=== PATIENT | male | born 1995 | race Caucasian/White ===

== ENCOUNTER 2023-07-22 09:41 | Outpatient (CLI) | payer BC, SELFPAY ==
[2023-07-22 10:20] LABS: Alanine Aminotransferase 27 U/L (6-50); Albumin Level 4.4 g/dL (3.5-5.1); Alkaline Phosphatase 71 U/L (38-126); Anion Gap 5 mmol/L (8-16); Aspartate Amino Transferase 15 U/L (17-59); Bilirubin,Total 0.9 mg/dL (0.2-1.3); Blood Urea Nitrogen 20 mg/dL (9-20); Calcium 9.3 mg/dL (8.4-10.2); Carbon Dioxide 31 mmol/L (22-30); Chloride 102 mmol/L (98-107); Cholesterol 170 mg/dL (0-200); Estimated Glomerular Filt Rate > 60; Glucose 102 mg/dL (65-110); HDL Direct 62 mg/dL; Potassium 4.1 mmol/L (3.4-5.0); Sodium 138 mmol/L (137-145); Triglycerides 93 mg/dL (<150)
[2023-07-22 10:32] LABS: LDL Cholesterol Direct 88 mg/dL
[2023-07-22 11:21] LABS: Thyroid Stimulating Hormone Reflex 0.481 uIU/mL (0.465-4.68)
== END 2023-07-22 09:42 | disposition home or self-care (01) ==
LOC: ANHLAB 09:44
PROVIDERS: PCP Family Medicine Adolescent Medicine; Visit Provider Nurse Practitioner Family
DX: Z13.220 Encounter for screening for lipoid disorders (principal); Z13.29 Encounter for screening for other suspected endocrine disorder
CPT/HCPCS: 36415; 80053; 80061; 84443

== ENCOUNTER 2023-12-07 13:21 | Emergency (ER) | payer BC, SELFPAY ==
[2023-12-07 13:26] VITALS: BP 116/73; PULSE 93; RESP 20; TEMP 36.6; O2SAT 99
--- NOTE | 2023-12-07 13:39 | ED.GENADULT ---
HPI - General Adult General Chief complaint: Nausea/Vomiting/Diarrhea Stated complaint: n/v Time Seen by Provider: 12/07/23 13:31 History of Present Illness HPI narrative: 28-year-old male presents emergency department for evaluation for nausea vomiting and abdominal pain it has been ongoing for the last 24 hours. Patient states this has been happening more frequently. Patient does admit to daily THC use but is adamant that this is not caused by his daily THC use. Patient has not yet had follow-up with GI. Patient also describes intermittent difficulty with swallowing. Related Data Allergies Allergy/AdvReac Type Severity Reaction Status Date / Time No Known Allergies Allergy Verified 07/22/23 08:19 Review of Systems Review of Systems: All systems reviewed & are unremarkable except as noted in HPI and below PMFSH Past Medical History Medical History Asthma Asthma attack Laceration of ear Surgical History Surgical History History of ear surgery Family History Family History Father Heart problem Sibling Asthma Social History Social History (Updated 07/22/23 @ 08:36 by Sandrine Guo APRN) Social History: coffee or caffeinated soda daily Smoking status: Never smoker Second hand tobacco smoke exposure: No Alcohol intake: current Drinks per week: 1 Alcohol use details: Pt states he drinks bourbon and/or tequila. Substance use: current Substance use type: marijuana Do You Feel Safe in your Home?: Yes Lack of Transportation: No Lack of Food: Sometimes True Current Housing: I Have Housing Concerned About Future Housing: No Difficulty Paying Gas/Electric Bills: No Difficulty Paying for Meds: Decline to Answer Currently Unemployed: No Education: Bachelor's Degree Difficulty w/ Childcare or Family Care: No Living arrangements: with friend(s) Occupation/Education: occupation Additional occupation/education comments: [employer] Ex[employer] Narrative: APPEARANCE: Uncomfortable appearing HEAD: normocephalic, atraumatic. EYES: PERRLA/EOMI, conjunctivae clear. NOSE: Normal no drainage EARS:TMS clear with good light reflex. THROAT: Pharynx clear, no exudate. NECK: Supple. No adenopathy, no masses. RESPIRATORY: Airway patent, respirations nonlabored. Clear to auscultation bilaterally, no rales, rhonchi, wheezing. CARDIOVASCULAR: Regular rate and rhythm without murmurs rubs or gallops. ABDOMINAL: Soft, nontender, nondistended, normal bowel sounds MUSCULOSKELETAL: Moves all extremities. Strength/ROM intact, No edema, No calf tenderness. NEURO: Alert. Cranial nerves II through XII intact. Grossly intact SKIN: Warm, dry. Normal Color Course Course Emergency Course: On re-evaluation patient reports he feels improved patient looks improved. Patient was encouraged to have close follow-up with primary care physician and with GI. Patient was also strongly encouraged to refrain from THC Vital Signs Vital signs: Vital Signs Temperature 97.9 F 12/07/23 13:26 Pulse Rate 93 12/07/23 13:26 Respiratory Rate 20 12/07/23 13:26 Blood Pressure 116/73 12/07/23 13:26 Pulse Oximetry 99 12/07/23 13:26 Oxygen Delivery Room Air 12/07/23 13:26 Temperature 97.9 F 12/07/23 13:26 Pulse Rate 100 12/07/23 16:06 Respiratory Rate 18 12/07/23 16:06 Blood Pressure 117/55 L 12/07/23 16:06 Pulse Oximetry 99 12/07/23 16:06 Oxygen Delivery Room Air 12/07/23 13:26 Medical Decision Making [facility] Narrative Medical decision making narrative: 28-year-old male present to the emergency department for evaluation for intermittent nausea and vomiting. Patient is afebrile but does have leukocytosis of 14.9 a stable hemoglobin of 14.8. Patient no significant electrolyte abnormalities on his CMP patien
[2023-12-07 13:47] LABS: Basophils Percent Auto 0.2 % (0.2-1.2); Eosinophils Percent Auto 0.1 % (0-4.4); Hemoglobin 14.8 g/dL (14.0-18.0); Immature Granulocyte Absolute 0.03 K/mm3 (0.00-0.031); Immature Granulocyte Percent A 0.2 % (0-0.5); Lymphocytes Absolute Auto 1.44 K/mm3 (0.9-3.2); Lymphocytes Percent Auto 9.7 % (18.3-44.2); Mean Corpuscular HGB Conc 34.4 g/dl (32-36); Mean Platelet Volume 9.5 fl (7.4-10.4); Monocytes Absolute Auto 0.7 K/mm3 (0.1-0.6); Monocytes Percent Auto 4.4 % (2.6-8.5); Neutrophils Absolute Auto 12.7 K/mm3 (1.3-6.7); Neutrophils Percent Auto 85.4 % (45.5-73.1); Platelet Count Result 317 k/mm3 (150-375); Red Blood Count 4.94 M/mm3 (4.6-6.20); Red Cell Distribution Width 12.5 % (11.5-14.5); White Blood Count 14.9 K/mm3 (4.5-10.0)
[2023-12-07] MEDS: SODIUM CHLORIDE 0.9% IV 1,000 ML 999 ML IV CONT ×2 (13:48→14:57)
[2023-12-07] MEDS: HALOPERIDOL LACTATE 5 MG/ML VIAL IM (13:49)
[2023-12-07 13:52] VITALS: BP 111/83
[2023-12-07 14:02] LABS: Alanine Aminotransferase 25 U/L (6-50); Albumin Level 5.4 g/dL (3.5-5.1); Alkaline Phosphatase 81 U/L (38-126); Anion Gap 17 mmol/L (4-12); Aspartate Amino Transferase 18 U/L (17-59); Bilirubin,Total 1.3 mg/dL (0.2-1.3); Blood Urea Nitrogen 18 mg/dL (9-20); Calcium 9.4 mg/dL (8.4-10.2); Carbon Dioxide 20 mmol/L (22-30); Chloride 105 mmol/L (98-107); Estimated CRCL calculation 99 ml/min; Estimated Glomerular Filt Rate > 60; Glucose 125 mg/dL (65-110); Lipase 68 U/L (23-300); Magnesium 1.9 mg/dL (1.6-2.3); Potassium 3.6 mmol/L (3.4-5.0); Sodium 142 mmol/L (137-145)
[2023-12-07 15:58] LABS: Appearance Urine Clear (Clear); Bacteria Urine None Seen /hpf; Bilirubin Urine Negative (Negative); Blood Urine Negative (Negative); Color Urine Dark Yellow (Yellow); Glucose Urine UA Negative (Negative); Ketones Urine 4+ mg/dL (Negative); Leukocyte Esterase Ur Negative LEU/UL (Negative); Mucus Urine Present /lpf; Need Manual Microscopic Reviewed; Nitrate Urine Negative (Negative); Non Pathogenic Casts 0-2; Protein Urine 2+ mg/dL (Negative); RBC Urine 0-2 /hpf (0-2); Squamous Epithelial Cell Urine None Seen /hpf (Few); WBC Urine 0-5 /hpf (0-3)
[2023-12-07 16:04] LABS: Add Urine Microscopic? YES; Specific Grav Ur 1.037 (1.001-1.035)
[2023-12-07 16:06] VITALS: BP 117/55; PULSE 100; RESP 18; O2SAT 99
== END 2023-12-07 16:08 | disposition home or self-care (01) ==
PROVIDERS: Emergency Provider Emergency Medicine; PCP Family Medicine Adolescent Medicine
DX: R11.2 Nausea with vomiting, unspecified (principal); J45.909 Unspecified asthma, uncomplicated
CPT/HCPCS: 36415; 80053; 81001; 83690; 83735; 84443; 85025; 96360; 96361; 96372; 99283; J1630; J7030

== ENCOUNTER 2024-02-17 00:06 | Day surgery (SDC) | payer BC, SELFPAY ==
[2024-02-06 11:33] VITALS: BMI 20.7
[2024-02-17 12:38] VITALS: BP 128/81; PULSE 66; RESP 14; TEMP 37; O2SAT 99
[2024-02-17] MEDS: LACTATED RINGERS 1,000 ML 150 ML IV CONT (12:46)
--- NOTE | 2024-02-17 13:23 | WPDANESEPPF ---
Anes - Initial Pre Proc Eval Procedure: Operation Date: 02/17/24 14:00 Proposed Procedures p Esophagogastroduodenoscopy - Jhonny Esteban MD Date/Time: 02/17/24 13:23 Surgeon: Jhonny Esteban MD Pre Op Diagnosis: nausea w/ vomiting, dysphagia Patient Data Age: 28 Gender: M Height: 1.73 m Weight: 58.5 kg Last Vital Signs Temp 98.6 F 02/17/24 12:38 Pulse 66 02/17/24 12:38 Resp 14 02/17/24 12:38 BP 128/81 02/17/24 12:38 Pulse Ox 99 02/17/24 12:38 O2 Del Method Room Air 02/17/24 12:38 Allergies Allergy/AdvReac Type Severity Reaction Status Date / Time No Known Allergies Allergy Verified 02/17/24 12:37 Home Medications Medication Instructions Recorded Confirmed Type omeprazole 40 mg capsule,delayed 40 mg PO DAILY #30 caps 01/02/24 02/17/24 Rx release ondansetron HCl 8 mg tablet 8 mg PO Q12H PRN nausea and 02/14/24 02/17/24 Rx vomiting #10 tabs Patient hx anesthesia problems: none Family hx anesthesia problems: none Results Review: All pre-operative results and documents have been reviewed as part of the pre-operative evaluation. [facility] Past Medical History Medical History Asthma Asthma attack Laceration of ear Surgical History Surgical History History of ear surgery Family History Family History Father Heart problem Sibling Asthma Social History Social History Social History: coffee or caffeinated soda daily Smoking status: Never smoker Second hand tobacco smoke exposure: No Alcohol intake: current Drinks per week: 1 Alcohol use details: Pt states he drinks bourbon and/or tequila. Substance use: current Substance use type: marijuana Other substance usage details: Daily Do You Feel Safe in your Home?: Yes Lack of Transportation: No Lack of Food: Sometimes True Current Housing: I Have Housing Concerned About Future Housing: No Difficulty Paying Gas/Electric Bills: No Difficulty Paying for Meds: Decline to Answer Currently Unemployed: No Education: Bachelor's Degree Difficulty w/ Childcare or Family Care: No Living arrangements: with family Occupation/Education: occupation Additional occupation/education comments: [employer] Spiritual care concerns: No Anes - Eval Final PreProcedure Day of Procedure 02/17/24 13:23 Patient weight: normal Heart: regular rate and rhythm Lungs: clear to auscultation Airway: Mallampati scale class II Neurological: alert and oriented Last oral intake: >/= 8 hours ASA classification: II Emergent: no Anesthetic plan: proceed Anesthesia type and monitoring: general GIVS and standard monitoring Results Review: All pre-operative results and documents have been reviewed as part of the pre-operative evaluation. Informed Consent: The patient's anesthetic plan and its attendant risks and benefits were discussed with the patient/family/POA. Questions were solicited and answers provided to the satisfaction of the patient/family/POA.
--- NOTE | 2024-02-17 13:42 | PM.HPGS ---
History of Present Illness History of Present Illness Consent: Risks, benefits, and alternatives have been discussed and questions answered. Patient agrees to proceed with procedure. Chief complaint: nausea w/ vomiting, dysphagia Narrative: Jose Rafael Jacobs is a 28 year old male here for first EGD, intermittent nausea and choking at throat level, using omeprazole. Review of Systems Review of Systems: All systems reviewed & are unremarkable except as noted in HPI and below PMFSH Past Medical History Medical History Asthma Asthma attack Laceration of ear Surgical History Surgical History History of ear surgery Family History Family History Father Heart problem Sibling Asthma Social History Social History Social History: coffee or caffeinated soda daily Smoking status: Never smoker Second hand tobacco smoke exposure: No Alcohol intake: current Drinks per week: 1 Alcohol use details: Pt states he drinks bourbon and/or tequila. Substance use: current Substance use type: marijuana Other substance usage details: Daily Do You Feel Safe in your Home?: Yes Lack of Transportation: No Lack of Food: Sometimes True Current Housing: I Have Housing Concerned About Future Housing: No Difficulty Paying Gas/Electric Bills: No Difficulty Paying for Meds: Decline to Answer Currently Unemployed: No Education: Bachelor's Degree Difficulty w/ Childcare or Family Care: No Living arrangements: with family Occupation/Education: occupation Additional occupation/education comments: [employer] Spiritual care concerns: No Meds Home Medications and Allergies Home Medications Medication Instructions Recorded Confirmed Type omeprazole 40 mg capsule,delayed 40 mg PO DAILY #30 caps 01/02/24 02/17/24 Rx release ondansetron HCl 8 mg tablet 8 mg PO Q12H PRN nausea and 02/14/24 02/17/24 Rx vomiting #10 tabs Allergies Allergy/AdvReac Type Severity Reaction Status Date / Time No Known Allergies Allergy Verified 02/17/24 12:37 Vital Signs Vital Signs - 24 hr 02/17/24 12:38 Temperature 98.6 F Pulse Rate 66 Respiratory Rate 14 Blood Pressure 128/81 Pulse Oximetry 99 Oxygen Delivery Room Air Exam Const: General: comfortable and no acute distress HENMT: Face/Nose/Sinus: Normal nares present Eyes: General: appearance normal, both eyes and all related structures Neck: Neck: no JVD Resp: Auscultation: clear to auscultation bilaterally Cardio: Rate: regular rate Rhythm: regular rhythm GI: Inspection: non-distended GI Palp: Yes Soft to palpation Skin: General skin exam: normal color Neuro: General: gait normal Speech: normal speech Extrem: General: normal to inspection Psych: Mental Status: mental status grossly normal Assessment and Plan Assessment and plan (1) Nausea & vomiting: Qualifiers: Vomiting type: bilious vomiting Qualified Code(s): R11.14 - Bilious vomiting Code(s): R11.2 - Nausea with vomiting, unspecified Status: Inactive Assessment and Plan: egd with bx (2) Globus sensation: Code(s): R09.A2 - Foreign body sensation, throat Status: Acute
[2024-02-17 13:57] VITALS: BP 111/70; PULSE 70; RESP 22; O2SAT 100
[2024-02-17 14:07] VITALS: BP 121/77; PULSE 71; RESP 24; O2SAT 100
[2024-02-17 14:17] VITALS: BP 128/70; PULSE 66; RESP 19; O2SAT 100
== END 2024-02-17 14:25 | disposition home or self-care (01) ==
PROVIDERS: PCP Nurse Practitioner Family; Referring Provider Nurse Practitioner Family; Visit Provider Internal Medicine Gastroenterology
PROC: 0DJ08ZZ Inspection of Upper Intestinal Tract, Via Natural or Artificial Opening Endoscopic (ICD-10-PCS; CPT 43235; principal; 2024-02-17 14:00)
DX: K21.00 Gastro-esophageal reflux disease with esophagitis, without bleeding (principal); K29.80 Duodenitis without bleeding; J45.909 Unspecified asthma, uncomplicated; F12.90 Cannabis use, unspecified, uncomplicated; Z98.890 Other specified postprocedural states; Z82.49 Family history of ischemic heart disease and other diseases of the circulatory system
CPT/HCPCS: 43239; 88305; J2704; J7120